=== PATIENT | male | born 1985 | race Caucasian/White ===

== ENCOUNTER 2023-03-24 08:19 | Emergency (ER) | payer BC ==
[~2023-03-24] VITALS: Ht 177.8 cm; Wt 80.7 kg
[2023-03-24 09:11] LABS: BASOPHILS 0.2 % (0-2); EOSINOPHILS 1.5 % (0-6); HEMATOCRIT 42.6 % (35.0-50.0); HEMOGLOBIN 14.9 g/dL (12.0-18.0); LYMPHOCYTES 6.6 % (24-44); MCH 30.7 (27-36); MCV 87.9 fl (81-99); MONOCYTES 5.4 % (0-12); NEUTROPHILS 86.3 % (39-80); PLATELET COUNT 228 K/uL (140-440); RBC 4.85 M/ul (4.3-5.7); RDW 12.6 (10.5-15.0)
[2023-03-24 09:27] LABS: ALBUMIN 3.8 g/dL (3.4-5.0); ALBUMIN/GLOBULIN RATIO 1.12 (1.1-2.4); ANION GAP 13.2 (7-21); BILIRUBIN, TOTAL 0.9 ng/dL (0.2-1.0); BUN/CREATININE RATIO 20.22 (6.0-28.6); CALCIUM 9.3 mg/dL (8.5-10.1); CREATININE, SERUM 0.89 mg/dL (0.70-1.30); POTASSIUM 4.2 mmol/L (3.5-5.1); PROTEIN, TOTAL 7.2 g/dL (6.4-8.2)
[2023-03-24 10:38] VITALS: BP 96/68
--- NOTE | 2023-03-24 21:01 | EKG ---
[facility] [address] [place] [address] Signed Sinus bradycardia Otherwise normal ECG No previous ECGs available Confirmed by Jana Page MD () on 03/24/2023 9:00:54 PM Electronically Signed By: JANA PAGE MD 03/24/232100 PATIENT NAME: JENY XAVIER Electrocardiogram DATE OF : 87 PHYSICIAN: JANA PAGE MD REPORT #: [id number] REPORT IS CONFIDENTIAL AND NOT TO BE RELEASED WITHOUT AUTHORIZATION
== END 2023-03-24 10:38 | disposition home or self-care (01) ==
LOC: ED 08:19
PROVIDERS: Emergency Medicine
DX: R55 Syncope and collapse (principal); B34.9 Viral infection, unspecified
CPT/HCPCS: 36415; 80053; 85025; 93005; 93010; 99284